=== PATIENT | female | born 1975 | race Caucasian/White ===

== ENCOUNTER 2024-11-26 07:09 | Emergency (ER) | payer BC ==
[2024-11-26] MEDS: Proparacaine 0.5% Ophth Soln 15 ML Bottle EYEBOTH ONE (08:01)
[2024-11-26] MEDS: Fluorescein 1 MG Ophth Strip EYEBOTH ONE (08:02)
[2024-11-26] MEDS: Erythromycin Base 0.5% Ophth Oint 1 GM Tube EYELF ONE (11:04)
[2024-11-26] MEDS: Carboxymethylcellulose Sodium 0.5% Ophth Soln 0.4 ML UD Box of 30 EYEBOTH PRN (11:05)
[2024-11-26] MEDS: Moxifloxacin 0.5% Ophth Soln 3 ML Bottle EYELF ONE (11:06)
== END 2024-11-26 11:07 | disposition home or self-care (01) ==
LOC: MW.ED 07:09
DX: S05.02XA Injury of conjunctiva and corneal abrasion without foreign body, left eye, initial encounter (principal); Z88.5 Allergy status to narcotic agent; Z88.6 Allergy status to analgesic agent; Z79.899 Other long term (current) drug therapy; X58.XXXA Exposure to other specified factors, initial encounter; Y93.89 Activity, other specified
CPT/HCPCS: 99283; A9270; J3490

== ENCOUNTER 2024-11-27 06:56 | Emergency (ER) | payer BC ==
[2024-11-27] MEDS: Fluorescein 1 MG Ophth Strip EYEBOTH ONE (07:59)
[2024-11-27] MEDS: Proparacaine 0.5% Ophth Soln 15 ML Bottle EYEBOTH ONE (07:59)
[2024-11-27] MEDS: Carboxymethylcellulose Sodium 0.5% Ophth Soln 0.4 ML UD Box of 30 EYELF ONE (08:56)
[2024-11-27] MEDS ORDERED: Carboxymethylcellulose Sodium 0.5% Ophth Soln 0.4 ML UD Box of 30 EYELF ONE (09:00)
== END 2024-11-27 09:00 | disposition home or self-care (01) ==
LOC: MW.ED 06:56
DX: S05.02XA Injury of conjunctiva and corneal abrasion without foreign body, left eye, initial encounter (principal); Z90.49 Acquired absence of other specified parts of digestive tract; Z88.5 Allergy status to narcotic agent; Z88.6 Allergy status to analgesic agent; Z79.899 Other long term (current) drug therapy; X58.XXXA Exposure to other specified factors, initial encounter
CPT/HCPCS: 99282; 99283; J3490